=== PATIENT | female | born 1955 | race Caucasian/White ===

== ENCOUNTER 2017-06-21 18:19 | Emergency (ER) | payer MEDICARE, MEDICAID ==
[~2017-06-21] VITALS: Ht 165.1 cm; Wt 76.2 kg
[~2017-06-21 18:19] MED LIST: ABILIFY 5 MG TAB5 M1 PO; ABILIFY15 MG PO; ACETAMINOPHEN650 M5 PO; ALBUTEROL2.5 MG/0.1 IH; ALDACTONE50 MG PO; AMBIEN 5 MG TABL5 M1 PO; ANALGESIC325 MG PO; ASPIR 8181 MG PO; ASPIRIN EC81 M1 PO; ATROVENT HFA14 GM INH; AVELOX 400 MG400 MG PO; AZITHROMYCIN 2250 MG PO; B12INJ PO; CARISOPRODOL 3350 MG PO; CLONAZEPAM; CLONAZEPAM 1 MG1 M1 PO; COLACE100 MG PO; CRESTOR10 MG PO; EFFEXOR XR75 MG PO; EFFIENT10 MG PO; FISH OIL 1,001000 M2 PO; FLEXERIL PO; HYDROCODONE-AP1 EAC2 PO; LISINOPRIL2.5 MG PO; LIVALO4 MG PO; LOPRESSOR25 PO; MEDROLDOSEPACK PO; METOPROLOL; MOBIC7.5 M1 PO; MONTELUKAST SOD10 MG PO; MUCINEX TA600 MG/TA1 PO; MYRBETRIQ50 MG PO; NICORETTE2 MG; NICOTINE GUM2 MG; NICOTINE TRANSD14 M1 TD; NITROSTAT0.4 MG SL; NORFLEX100 MG PO; OMEPRAZOLE40 MG PO; OXYCONTIN20 MG PO; OXYCONTIN30 MG PO; PEPCID AC20 M1 PO; PERCOCET 10-321 EACH PO; PERCOCET 5-3251 EACH PO; PERCOCET 7.5-51 EACH PO; PLAVIX; PREDNISONE 10 M10 M1; PREDNISONE 10 M10 MG; PREDNISONE 20 M20 MG PO; PROAIR HFA8.5 GM IH; PROTONIX PO; PROZAC PO; SINGULAIR 10 MG10 M1 PO; SPIRONOLACTONE50 MG; SPIRONOLACTONE50 MG PO; STIOLTO RESPIMAT4 GM INH; TUDORZA PRESS400 MCG IH; TYLENOL325 MG PO; VITAMIN D1000 UNI1 PO; ZANTAC 150MG T150 MG PO; ZESTRIL2.5 MG PO
[2017-06-21] MEDS ORDERED: METHOCARBAMOL500 M2 PO (18:47)
[2017-06-21 19:16] VITALS: BP 104/63
== END 2017-06-21 19:18 | disposition home or self-care (01) ==
LOC: M.ERS 18:19
DX: M54.5 Low back pain (principal); G89.29 Other chronic pain; I25.2 Old myocardial infarction; M19.90 Unspecified osteoarthritis, unspecified site; F41.9 Anxiety disorder, unspecified; J44.9 Chronic obstructive pulmonary disease, unspecified; F32.9 Major depressive disorder, single episode, unspecified; F17.210 Nicotine dependence, cigarettes, uncomplicated; Z95.5 Presence of coronary angioplasty implant and graft; Z90.710 Acquired absence of both cervix and uterus; Z98.890 Other specified postprocedural states; Z91.040 Latex allergy status; Z88.1 Allergy status to other antibiotic agents

== ENCOUNTER → 2017-07-12 | Outpatient (CLI) | payer MEDICARE, MEDICAID ==
[~2017-07-12] MED LIST changes: +FENOFIBRATE160 MG PO; +METHOCARBAMOL500 M2 PO; +ZANAFLEX2 MG PO
== END ==
LOC: M.RAD 13:28
DX: M79.652 Pain in left thigh (principal); M25.552 Pain in left hip; K22.2 Esophageal obstruction; I25.110 Atherosclerotic heart disease of native coronary artery with unstable angina pectoris; J44.9 Chronic obstructive pulmonary disease, unspecified; I10 Essential (primary) hypertension; E78.5 Hyperlipidemia, unspecified; I21.3 ST elevation (STEMI) myocardial infarction of unspecified site

== ENCOUNTER 2018-01-19 08:29 | Observation (INO) | payer MEDICARE, MEDICAID ==
[2018-01-19] VITALS (9 sets, daily range): BP systolic 82–123; BP diastolic 35–63
[~2018-01-19] VITALS: Ht 165.1 cm; Wt 76.2 kg
--- NOTE | ~2018-01-19 | H ---
[address] [address] HISTORY AND PHYSICAL Name: NITHIN ENGLISH Room: [address] Hattie MSancho#: [id number] Admission: 01/19/18 Attend Phys: Trey Lazaro MD, Discharge: 01/20/18 Date of : 55 Report #: [id number] THIS REPORT FOR: //name// Please refer to the History and Physical performed in the physician's office. By: [id number] Records Staff BESSIE /REINA
[~2018-01-19 08:29] MED LIST changes: -FENOFIBRATE160 MG PO; -ZANAFLEX2 MG PO
[2018-01-19] MEDS ORDERED: ZANAFLEX2 MG PO (09:02)
[2018-01-19] MEDS ORDERED: FENOFIBRATE160 MG PO (09:03)
[2018-01-19 09:26] LABS: ABSOLUTE BASOPHILS 0.1 thou/uL (0.0-0.2); ABSOLUTE EOSINOPHILS 0.4 thou/uL (0.0-0.7); ABSOLUTE LYMPHOCYTES 1.7 thou/uL (0.8-5.3); ABSOLUTE MONOCYTES 0.4 thou/uL (0.0-1.2); ABSOLUTE NEUTROPHILS 3.5 thou/uL (1.6-8.1); BASOPHILS 0.9 %; EOSINOPHILS 6.6 %; HEMATOCRIT 36.2 % (37.0-47.0); HEMOGLOBIN 12.7 gm/dL (12.0-15.0); LYMPHOCYTES 28.3 %; MCH 33.4 pg (26.0-34.0); MCHC 35.1 g/dL (28.0-37.0); MCV 95.4 fL (80.0-100.0); MONOCYTES 6.3 %; MPV 6.8 fl. (7.2-11.1); NUCLEATED RBCS 0 /100WBC; PLATELET COUNT* 262 thou/uL (150-400); POLYS 57.9 %; RDW-CV 12.4 % (10.5-14.5)
[2018-01-19 09:33] LABS: ANION GAP 8 mmol/L (7-16); BUN 11 mg/dL (7-18); CHLORIDE 105 mmol/L (98-107); CO2 27 mmol/L (21-32); CREATININE 0.7 mg/dL (0.6-1.3); GLUCOSE 91 mg/dL (70-99); SODIUM 140 mmol/L (136-145)
[2018-01-19 09:37] LABS: ALBUMIN 3.8 g/dL (3.4-5.0); ALKALINE PHOSPHATASE 48 U/L (46-116); CHOLESTEROL 161 mg/dL (<200); HDL CHOLESTEROL 37 mg/dL (>40); LDL CHOLESTEROL 92 mg/dL (<100); SGOT 22 U/L (15-37); SGPT 27 U/L (30-65); TC:HDL 4.4 Ratio (Not establshd); TOTAL BILIRUBIN 0.6 mg/dL (<0.1-1.0); TOTAL PROTEIN 7.1 g/dL (6.4-8.2); TRIGLYCERIDE 160 mg/dL (<150); VLDL 32 mg/dL (<40)
[2018-01-19 09:42] LABS: APTT 26.8 Seconds (25.0-31.3); INR 1.1; PROTIME 10.3 Seconds (9.20-11.50); SERUM ASSESSMENT Clear
--- NOTE | 2018-01-19 17:37 | EKG ---
[place] [address] ELECTROCARDIOGRAM REPORT Name: NITHIN ENGLISH Room: [address]R.#: [id number] Admission: 01/19/18 Attend Phys: Trey Lazaro MD, Discharge: Date of : 55 Report #: [id number] THIS REPORT FOR: //name// [facility] Test Date: 2018-01-19 Test Time: 09:31:12 Pat Name: NITHIN ENGLISH Department: Room: [facility] Gender: F Juvenile Officer: : 1955 Requested By: Trey Lazaro Order Number: [id number] Joyce MD: Trey Lazaro Measurements Intervals [place] Rate: 61 P: 42 UT: 163 QRS: 28 QRSD: 88 T: 51 QT: 426 QTc: 429 Interpretive Statements Sinus rhythm Compared to ECG 04/01/2017 07:48:39 No significant changes Electronically Signed On 01-19-2018 17:37:30 CDT by Trey Lazaro [email or web address] <ELECTRONICALLY SIGNED> By: Trey Lazaro MD, [facility] 01/19/18 1737 D: 08930 0 Trey Lazaro MD, FACC /EPI
--- NOTE | 2018-01-19 17:40 | EKG ---
[place] [address] ELECTROCARDIOGRAM REPORT Name: NITHIN ENGLISH [address]: [address]#: [id number] Admission: 01/19/18 Attend Phys: Trey Lazaro MD, Discharge: Date of : 55 Report #: [id number] THIS REPORT FOR: //name// Test Date: 2018-01-19 Test Time: 17:10:43 Pat Name: NITHIN ENGLISH Department: Room: [facility] Gender: F Field Assistant: PRABHA : 1955 Requested By: Trey Lazaro Order Number: [id number] Joyce MD: Trey Lazaro Measurements Intervals [place] Rate: 63 P: 75 MT: 194 QRS: 32 QRSD: 101 T: 60 QT: 442 QTc: 453 Interpretive Statements Sinus rhythm Compared to ECG 04/01/2017 07:48:39 No significant changes Electronically Signed On 01-19-2018 17:40:45 CDT by Trey Lazaro [email or web address] <ELECTRONICALLY SIGNED> By: Trey Lazaro MD, [facility] 01/19/18 1740 09 09 Trey Lazaro MD, FACC /EPI
[2018-01-20] VITALS: BP 114/49
[2018-01-20 01:18] VITALS: BP 114/49
[2018-01-20 04:33] VITALS: BP 135/60
[2018-01-20 05:02] LABS: HEMATOCRIT 39.4 % (37.0-47.0); HEMOGLOBIN 13.5 gm/dL (12.0-15.0); MCH 32.7 pg (26.0-34.0); MCHC 34.4 g/dL (28.0-37.0); MCV 95.1 fL (80.0-100.0); RBC 4.14 mil/uL (4.20-5.00); RDW-CV 12.3 % (10.5-14.5); WBC 7.9 thou/uL (4.0-11.0)
[2018-01-20 05:20] LABS: CALCIUM 9.1 mg/dL (8.5-10.1); CREATININE 0.7 mg/dL (0.6-1.3); POTASSIUM 3.9 mmol/L (3.5-5.1); TOTAL BILIRUBIN 0.7 mg/dL (<0.1-1.0); TOTAL PROTEIN 7.1 g/dL (6.4-8.2); TROPONIN-I LEVEL 0.3 ng/mL (<0.06)
[2018-01-20 08:06] VITALS: BP 153/51
[2018-01-20 09:43] VITALS: BP 153/51
--- NOTE | 2018-01-25 16:08 | CARD ---
[address] [address] CARDIAC CATH REPORT Name: NITHIN ENGLISH Room: [address] Hattie Venegas#: [id number] Admission: 01/19/18 Attend Phys: Trey Lazaro MD, Discharge: 01/20/18 Date of : 55 Report #: [id number] THIS REPORT FOR: //name// APPROVED REPORT Study performed: 01/19/2018 14:08:55 Patient Details Patient Status: In-Patient Room #: 225 The patient is a 62 year-old female Event Personnel Trey Lazaro Laser Beam Color Scanner Operator, Karina Alberto RN Chemical Treatment Operator, Linda Villegas, Pam Amador RTR Scrub Procedures Performed Art Access - R femoral artery* Left Heart Cath Coronaries, Bypass Grafts [id number] LHCCORCABG SHAKILA Revasc Graft Single CIRC C9604 SVGREVSING Indication Unstable angina Risk Factors Hypercholesterolemia, Hypertension Previous Procedures/Diagnoses Previous CABGPrevious PCI Admission/Lab Medications/Medications given during procedure Aspirin, Platelet Aff. Inhib. Procedure Narrative The patient was brought electively to the Cardiac Catheterization Laboratory and was prepped and draped in a sterile manner. The right femoral was infiltrated with 2% Lidocaine subcutaneous anesthesia. A [place] 6 FR sheath was inserted into the right femoral artery. Coronary angiography was performed using coronary diagnostic catheters. The right coronary system was accessed and visualized with a AR1 Mod 6fr catheter. The left coronary system was accessed and visualized with a JL 4 6fr catheter. The left ventricle was accessed and visualized with a Diagnostic Pigtail catheter. Left ventricular/Aortic Valve gradient assessed via catheter pullback. Left ventriculogram was performed in [place] projection. Pre-demployment femoral angiogram was performed . Closure [place] [address] CARDIAC CATH REPORT Name: NITHIN ENGLISH Jacquie Room: [address]#: [id number] Admission: 01/19/18 Attend Phys: Trey Lazaro MD, Discharge: 01/20/18 Date of : 55 Report #: [id number] 6 Fr Angioseal STS 6Fr. The patient tolerated the procedure well and there were no complications associated with the procedure. There was no hematoma. Intraoperative Conscious Sedation Sedation start time: 14:41 Case end Time: 15:45 Fentanyl 25 mcg Versed 2 mg Fluoro Time: 17.2 minutes Dose: DAP 03483 cGycm2 1058.28 mGy Contrast Type and Amount: Visipaque 150 ml [place] Artery Percent Stenosis #1 widely patent ROGEL graft to the LAD #2 widely patent vein graft to the distal right coronary artery #3 patent saphenous vein graft to the circumflex with 75% distal anastomotic stenosis Diagnostic Cath Left Main 0% narrowing LAD 100% mid LAD occlusion after the takeoff of the first diagonal Circumflex 100% mid circumflex occlusion, this being a nondominant vessel Right Coronary 100% proximal occlusion by prior cineangiograms Hemodynamics The aortic pressure is 116/58 mmHg with a mean of mmHg. The left ventricular pressure is 110/0 mmHg with a mean of mmHg. The left ventricular end diastolic pressure is 15 mmHg. There was no gradient across the aortic valve upon pullback. PCI Technique Lesion Percutaneous coronary intervention was performed on the Mid 1/3mid circumflex artery segment. The lesion stenosis prior to intervention was 75% with LINDA 3 flow. A 6F LCB 100CM Guide Catheter was used to engage the LCA ostium. BALLOON DILATION A Balloon catheter NC Trek RX 2.5 X 12 was inserted and inflated up to 15.00atm for 14seconds. Additional Inflation: 17.00atm for 12seconds. Additional Inflation: 18.00atm [place] 12[place]. [place] [address] CARDIAC CATH REPORT Name: NITHIN ENGLISH Room: [address]#: [id number] Admission: 01/19/18 Attend Phys: Trey Lazaro MD, Discharge: 01/20/18 Date of : 55 Report #: [id number] STENT DEPLOYMENT A drug-eluting stent Xience Alpine RX 2.5X18 was inserted and inflated up to 12.00atm for 14seconds. Additional Inflation: 15.00atm for 12seconds. Additional Inflation: 16.00atm for 10seconds. Final angiography reveals 0 % stenosis with LINDA 3 flow. Conclusion #1 significant coronary artery disease characterized by the following: A total mid LAD occlusion B total mid circumflex occlusion C total occlusion of the dominant right coronary artery proximally #2 graft study characterized by the following A widely patent ROGEL graft to the LAD B widely patent saphenous vein graft to the distal right coronary artery C patent saphenous vein graft to the distal circumflex with 75% distal anastomotic narrowing #3 normal left-sided hemodynamics study #4 successful percutaneous coronary intervention with deployment of drug-eluting stent at site of 75% stenosis in the distal portion of the vein graft to the circumflex with 0% residual narrowing and LINDA-3 flow the distal vessel Recommendations Cardiac Risk Reduction Program Aggressive Medical Therapy Medications Administered Aspirin (any) [place] [address] CARDIAC CATH REPORT Name: NITHIN ENGLISH Room: [address]#: [id number] Admission: 01/19/18 Attend Phys: Trey Lazaro MD, Discharge: 01/20/18 Date of : 55 Report #: [id number] Diagnostic Cath Approved by: Trey Lazaro MD Date/Time: 01/25/2018 16:06:23 <ELECTRONICALLY SIGNED> By: Trey Lazaro MD, [facility] 01/25/18 1608 1608 [id number] Lazaro MD, [facility]INF
--- NOTE | 2018-01-31 14:46 | D ---
[address] [address] DISCHARGE SUMMARY Name: NITHIN ENGLISH Room: [address] Hattie M.RLeny#: [id number] Admission: 01/19/18 Attend Phys: Trey Lazaro MD, Discharge: 01/20/18 Date of : 55 Report #: [id number] THIS REPORT FOR: //name// CC: Linda Lazaro The patient will be discharged on 01/20/2018. FINAL DISCHARGE DIAGNOSES: 1. Unstable angina. 2. Coronary artery disease. 3. Status post coronary artery bypass grafting. 4. Status post percutaneous coronary intervention of the vein graft to the circumflex. 5. Tobacco habituation. 6. Hypercholesterolemia. PROCEDURES: 01/19/2018-left heart catheterization, selective coronary arteriography, aortocoronary saphenous vein bypass graft study, ROGEL graft study, and percutaneous coronary intervention of the vein graft to the circumflex. The patient is a 62-year-old female with aggressive coronary artery disease, status post remote coronary artery bypass grafting and more recent stenting of the vein graft to the right coronary artery and circumflex in 2017. She presented with recurrent angina, followed by our nurse practitioner to reflect angina pectoris following an unstable course. In this context, cardiac catheterization was performed on 01/19/2018. That study demonstrated totally occluded mid LAD, mid circumflex and mid right coronary artery. There was a widely patent ROGEL graft to the LAD, patent saphenous vein graft to the right coronary artery with 30-40% proximal graft narrowing, and patent saphenous vein graft to the distal circumflex with 80% distal graft anastomotic stenosis. Given the aforementioned data with clinically unstable angina and the above described angiographic findings, I elected to proceed with percutaneous coronary intervention, deploying one 2.5 x 18 mm Xience Alpine drug-eluting stent in the distal portion of the vein graft to the circumflex with 0% residual narrowing and LINDA 3 flow of the distal vessel. The patient received postoperative additional Effient 30 mg and aspirin 81 mg. She is discharged to home on dual antiplatelet therapy with aspirin 81 mg and Effient 10 mg daily. Additional medicines can be continued as preprocedurally. We will plan to follow up with our nurse practitioner in 10 days to 2 weeks. Thus, the patient is discharged [place] [address] DISCHARGE SUMMARY Name: NITHIN ENGLISH Jacquie [address]: [address]#: [id number] Admission: 01/19/18 Attend Phys: Trey Lazaro MD, Discharge: 01/20/18 Date of : 55 Report #: [id number] described medications with continuation of dual antiplatelet therapy with followup in our office in 10 days to 2 weeks. <ELECTRONICALLY SIGNED> By: Trey Lazaro MD, [facility] 01/31/18 1446 1758 [id number] Lazaro MD, ANNABEL /nt
== END 2018-01-20 12:07 | disposition home or self-care (01) ==
LOC: M.CL 08:29 → M.2W 16:06 → M.TBA-CV 16:06 → M.2W 16:52
PROVIDERS: ADMIT Internal Medicine
DX: I25.110 Atherosclerotic heart disease of native coronary artery with unstable angina pectoris (principal); E78.00 Pure hypercholesterolemia, unspecified; J44.9 Chronic obstructive pulmonary disease, unspecified; Z72.0 Tobacco use; Z95.5 Presence of coronary angioplasty implant and graft